=== PATIENT | male | born 1955 ===

== ENCOUNTER 2023-05-24 06:26 | Day surgery (SDC) | payer OTHER, SELFPAY ==
[2023-05-24 09:46] VITALS: BP 143/86
[2023-05-24 09:47] VITALS: BMI 28.3
[2023-05-24 09:55] VITALS: BMI 28.3
[2023-05-24 12:13] VITALS: BP 95/73
[2023-05-24 12:15] VITALS: BP 114/75
[2023-05-24 12:30] VITALS: BP 141/84
== END 2023-05-24 12:50 | disposition home or self-care (01) ==
LOC: SDS 06:26
PROVIDERS: ATTENDING PHYSICIAN Internal Medicine Gastroenterology
DX: Z12.11 Encounter for screening for malignant neoplasm of colon (principal); D12.2 Benign neoplasm of ascending colon; K64.0 First degree hemorrhoids; K57.50 Diverticulosis of both small and large intestine without perforation or abscess without bleeding; K86.2 Cyst of pancreas; K31.89 Other diseases of stomach and duodenum; K31.4 Gastric diverticulum; K76.89 Other specified diseases of liver; R93.3 Abnormal findings on diagnostic imaging of other parts of digestive tract; Z86.010 Personal history of colon polyps; Z98.0 Intestinal bypass and anastomosis status
CPT/HCPCS: 43237; 45385; 43239; 88305; 88342

== ENCOUNTER → 2024-02-28 08:40 | Outpatient (REF) | payer BC, SELFPAY ==
[2024-02-28 10:17] LABS: % Basophils 0.8 % (0-2); % Eosinophils 3.7 % (0-6); % Immature Granulocytes 0.5 % (0-0.5); % Lymphocytes 22.9 % (20.5-51.1); % Neutrophils 63.1 % (42.2-75.2); Absolute Basophils 0.1 10^3/uL (0-0.2); Absolute Eosinophils 0.4 10^3/uL (0-0.7); Absolute Immature Granulocytes 0.1 10^3/uL (0-0.05); Absolute Lymphocytes 2.2 10^3/uL (1.2-3.4); Absolute Monocytes 0.9 10^3/uL (0.1-0.6); Hematocrit 42.6 % (39.0-52.0); Hemoglobin 14.3 g/dL (13.0-18.0); Mean Corp Hgb Conc. 33.6 g/dL (33.0-37.0); Mean Corpuscular Volume 95.3 fL (80.0-94.0); Mean Platelet Volume 9.9 fL (7.4-10.4); Nucleated Red Blood Cells % 0 % (-); Platelet Count 376 10^3/uL (130-400); Red Blood Cell Count 4.47 10^6/uL (4.70-6.10); Red Cell Dist. Width 13.7 % (11.5-14.5); White Blood Cell Count 9.5 10^3/uL (4.8-10.8)
[2024-02-28 11:09] LABS: Blood Urea Nitrogen 19 mg/dl (9-20); Calcium 9.7 mg/dl (8.4-10.2); Carbon Dioxide 24 mmol/L (22-30); Chloride 109 mmol/L (98-107); Glucose 89 mg/dl (70-99); Potassium 4.8 mmol/L (3.5-5.1); Sodium 145 mmol/L (135-145); eGFR > 60.00
== END ==
LOC: REG 08:40
PROVIDERS: ATTENDING PHYSICIAN Specialist; FAMILY PHYSICIAN Internal Medicine
DX: Z01.818 Encounter for other preprocedural examination (principal)
CPT/HCPCS: 36415; 80048; 85025; 93005

== ENCOUNTER 2024-03-27 09:15 | Inpatient (IN) | payer BC, SELFPAY ==
[2024-03-27] VITALS (41 sets, daily range): BP systolic 100–170; BP diastolic 54–82; PULSE 86–97; BMI 30.1; BMI 28.0
--- NOTE | 2024-03-27 03:35 | DOWNTIME ---
There was a [employer] Client Product Strategy Director Downtime on 03/27/2024 from 0200 to 03/27/2024 at 0325 . Downtime documentation of patient's care, including medication administrations, has been reconciled in the electronic record per guidelines. Refer to the
patient's paper chart under the miscellaneous tab to see printed paper medication records and downtime forms.
--- NOTE | 2024-03-27 05:07 | ED.GENMED ---
History of Present Illness
<AYAAN Villalobos - Last Filed: 03/27/24 05:15>
General
Chief Complaint: Breathing Problem
Source: patient and spouse
Time Seen by Provider: 03/27/24 04:47
Nursing documentation reviewed up to this point in time: agreed with
History of Present Illness
History of Present Illness:
Pt is a 68 yo M who presents to the ED with his for shortness of breath after having R rotator cuff surgery repair last night. Patient's states when she took the patient home they checked his vitals and he had low blood pressure,
tachycardia, and low O2 saturation. Pt states going up the stairs after surgery he was short of breath. said when the patient's O2 at home read 79% they decided to come to the ED. Pt is saturating in the 90s while on exam. Pt also admits to b/l
upper extremity swelling that began after the surgery. Pt denies headache, chest pain, fever, chills, cough, nasal congestion, palpitations, dizziness, lightheaded, changes in vision, numbness or tingling.
Pt states that last week when at the store he felt dizzy, so he sat down and then fainted. EMS was called to the store to help the patient. Pt states that he hit the right side of his face from the fall. Pt states that after the fall he had no
headache.
Review of Systems
<AYAAN Villalobos - Last Filed: 03/27/24 05:15>
Review of Systems
Allergies reviewed?: Yes
Constitutional: Reports no symptoms
EENT: Reports no symptoms
Respiratory: Reports other (shortness of breath)
Cardiac: Reports no symptoms
ABD/GI: Reports no symptoms
: Reports no symptoms
Phy Exam
<AYAAN Villalobos - Last Filed: 03/27/24 05:15>
General Physical Exam
General Presentation: well appearing and no apparent distress
General age: appears stated age
General Skin: warm
General Habitus: normal
General Mental: alert
General Hydration: appears well hydrated
Cardiovascular Exam
Cardiovascular Exam: regular rate/rhythm
Pulmonary Exam
Pulmonary Exam: lungs clear
Scores
<Zunilda Purdy DO - Last Filed: 03/27/24 07:16>
Heart Failure Risk
Heart Failure Risk Score: Not Applicable
Course
<Erika Joyner, STPA - Last Filed: 03/27/24 05:15>
Orders/Labs/Results
Orders:
Orders
03/27/24 05:18
Electrocardiogram (*1) Urgent
Reason for Study: Shortness of Breath
EKG- Treatment ONCE
Orthostatic VS- Treatment ONCE
CR Chest - 2 Views Urgent
Comment:
Reason For Exam: HUMPHREY
03/27/24 05:27
Type+Screen Urgent
Complete Blood Count/With Diff Urgent
Comprehensive Metabolic Panel Urgent
Free T4 Urgent
NT-proBNP Urgent
TSH Reflex To Free T4 Urgent
Troponin I Urgent
03/27/24 05:58
ABO2 Urgent
BBK Wristband Number:
Associate notified that ABO2 has been ordered: [id number]
Date: 03/27/24
Time: 05:55
Associate Professor Of Chemistry ID: [id number]
03/27/24 06:25
Pantoprazole 80 mg/100 ml Nss [Protonix] 80 mg in 100 ml IV NOW
Pantoprazole [Protonix IV] 80 mg IV NOW STA
Abnormal Lab Results
03/27/24
05:27
WBC 18.6 H 10^3/uL
(4.8-10.8)
RBC 1.58 L 10^6/uL
(4.70-6.10)
Hgb 5.1 L* g/dL
(13.0-18.0)
Hct 15.4 L* %
(39.0-52.0)
MCV 97.5 H fL
(80.0-94.0)
MCH 32.3 H pg
(27.0-31.0)
Abs Immat Gran (auto) 0.1 H 10^3/uL
(0-0.05)
Absolute Neuts (auto) 15.0 H 10^3/uL
(1.4-6.5)
Absolute Monos (auto) 1.2 H 10^3/uL
(0.1-0.6)
Immature Gran % 0.6 H %
(0-0.5)
Neutrophils % 80.3 H %
(42.2-75.2)
Lymphocytes % 12.2 L %
(20.5-51.1)
Chloride 110 H mmol/L
(98-107)
Glucose 112 H mg/dl
(70-99)
Calcium 8.2 L mg/dl
(8.4-10.2)
Total Bilirubin < 0.1 L mg/dl
(0.2-1.3)
Alkaline Phosphatase 32 L U/L
(38-126)
Total Protein 5.0 L g/dl
(6.3-8.2)
Albumin 3.0 L g/dl
(3.5-5.0)
TSH (Reflex) 0.35 L uIU/ml
(0.47-4.68)
03/27/24 05:27
03/27/24 05:27
Vital Signs
Initial and Last Documented VS:
Initial Vital Signs
Temp Pulse Resp BP Pulse Ox
98.3 F 88 16 112/57 100
03/27/24 00:40 03/27/24 00:40 03/27/24 00:40 03/27/24 00:40 03/27/24 00:40
Last Documented Vital Signs
Temp Pulse Resp BP Pulse Ox
98.3 F 100 22 100/62 90
03/27/24 00:40 03/27/24 06:45 03/27/24 06:45 03/27/24 06:45 03/27/24 06:45
<Zunilda Purdy DO - Last Filed: 03/27/24 07:16>
Orders/Labs/Results
Orders:
Orders
03/27/24 05:18
Electrocardiogram (*1) Urgent
Reason for Study: Shortness of Breath
EKG- Treatment ONCE
Orthostatic VS- Treatment ONCE
CR Chest - 2 Views Urgent
Comment:
Reason For Exam: HUMPHREY
03/27/24 05:27
Type+Screen Urgent
Complete Blood Count/With Diff Urgent
Comprehensive Metabolic Panel Urgent
Free T4 Urgent
NT-proBNP Urgent
TSH Reflex To Free T4 Urgent
Troponin I Urgent
03/27/24 05:58
ABO2 Urgent
BBK Wristband Number:
Associate notified that ABO2 has been ordered: [id number]
Date: 03/27/24
Time: 05:55
Associate Professor Of Chemistry ID: [id number]
03/27/24 06:25
Pantoprazole 80 mg/100 ml Nss [Protonix] 80 mg in 100 ml IV NOW
Pantoprazole [Protonix IV] 80 mg IV NOW STA
Abnormal Lab Results
03/27/24
05:27
WBC 18.6 H 10^3/uL
(4.8-10.8)
RBC 1.58 L 10^6/uL
(4.70-6.10)
Hgb 5.1 L* g/dL
(13.0-18.0)
Hct 15.4 L* %
(39.0-52.0)
MCV 97.5 H fL
(80.0-94.0)
MCH 32.3 H pg
(27.0-31.0)
Abs Immat Gran (auto) 0.1 H 10^3/uL
(0-0.05)
Absolute Neuts (auto) 15.0 H 10^3/uL
(1.4-6.5)
Absolute Monos (auto) 1.2 H 10^3/uL
(0.1-0.6)
Immature Gran % 0.6 H %
(0-0.5)
Neutrophils % 80.3 H %
(42.2-75.2)
Lymphocytes % 12.2 L %
(20.5-51.1)
Chloride 110 H mmol/L
(98-107)
Glucose 112 H mg/dl
(70-99)
Calcium 8.2 L mg/dl
(8.4-10.2)
Total Bilirubin < 0.1 L mg/dl
(0.2-1.3)
Alkaline Phosphatase 32 L U/L
(38-126)
Total Protein 5.0 L g/dl
(6.3-8.2)
Albumin 3.0 L g/dl
(3.5-5.0)
TSH (Reflex) 0.35 L uIU/ml
(0.47-4.68)
03/27/24 05:27
03/27/24 05:27
Vital Signs
Initial and Last Documented VS:
Initial Vital Signs
Temp Pulse Resp BP Pulse Ox
98.3 F 88 16 112/57 100
03/27/24 00:40 03/27/24 00:40 03/27/24 00:40 03/27/24 00:40 03/27/24 00:40
Last Documented Vital Signs
Temp Pulse Resp BP Pulse Ox
98.3 F 100 22 100/62 90
03/27/24 00:40 03/27/24 06:45 03/27/24 06:45 03/27/24 06:45 03/27/24 06:45
<AYAAN Villalobos - Last Filed: 03/27/24 05:15>
*Critical Care Note
Total Time (30-74mins, 75-104mins- exclusive of procedures): Not Applicable
<Zunilda Purdy DO - Last Filed: 03/27/24 07:16>
*Radiology
Radiology exam reviewed: preliminary read by ED provider (Chest x-ray shows mild cardiomegaly, poor inspiratory effort otherwise unremarkable.)
*Pulse Oximetry
Patient hypoxic: no
*EKG
Interpreted by ED Provider?: Yes
Interpretation: normal
Comparison EKG: no changes (Unchanged from previous February 27 save for heart rate has increased from 73 to now 87)
Rate: normal
Rhythm: sinus and PVC's
Howe: normal axis
Interval: first degree heart block
QRS Pattern: normal QRS
Ischemia: no ischemia
*Practicing Md Anesthesiologist Interpretation
Rate: normal
Interpretation: normal
Rhythm: sinus
ED Attending Note
<AYAAN Villalobos - Last Filed: 03/27/24 05:15>
-
Portions of this chart may have been created with voice recognition software.� Occasional wrong word or��sound alike� substitutions may have occurred due to the inherent limitations of voice recognition software.
<Zunilda Purdy DO - Last Filed: 03/27/24 07:16>
ED Attending Note
Patient seen and examined by attending physician: Yes
I performed the substantive portion of visit, reviewed & personally made and approve the management plan that is documented in note by myself or CRISTOBAL.: Yes
ED Attending Note:
This is a 68-year-old gentleman who has remote history of traumatic left BKA, splenectomy, history of perforated colon related to diverticulitis requiring colon resection and prior history of AAA repair. More recently he has been suffering with
bilateral rotator cuff injuries taking a fair amount of ibuprofen over the past several months. He underwent right rotator cuff repair yesterday.
Unremarkable preop labs and EKG 1 month ago.
1 week ago he suffered a syncopal episode while at a store he became lightheaded, passed out, struck his head and upon EMS arrival was found to be hypotensive. He declined transport at that time but since then he has had dyspnea on exertion,
intermittent lightheadedness and feeling of palpitations that his heart rate has been running in the 80s to 90s when he generally is in the 60s. He does admit to some black tarry stools sporadically over the past week. He denies abdominal pain, no
nausea nor vomiting, no chest pain. No fever no chills.
Since postop yesterday afternoon he has remained somewhat tachycardic, short of breath and markedly short of breath with attempting to ascend the stairs tonight. He denies shoulder pain stating his right shoulder is still numb from local anesthesia
block.
He underwent surveillance colonoscopy and endoscopy May of this year. Endoscopy showed mild antral gastritis otherwise unremarkable. Colonoscopy showed 1 small polyp, internal hemorrhoids. Unremarkable colonic anastomosis.
He takes no anticoagulants save for low-dose aspirin.
GENERAL: 68-year-old gentleman appears his stated age, awake and alert, pleasant, appears in no acute distress. is accompanying.
EYE: pupils equal and reactive. Moderately pale conjunctiva bilaterally. Anicteric.
NECK: Supple, nontender, no meningismus, no significant adenopathy.
ENT: oral mucosa is moist. No rhinorrhea.
CARDIAC: Regular rate and rhythm. no murmur.
LUNGS: Clear breath sounds bilaterally, no acute respiratory distress, no wheezes/rales/rhonchi
ABDOMEN: Soft, nondistended, without focal tenderness, no r/g, no cvat. normoactive BS. Rectal exam by PA student under my direct supervision. Scant black stool that is heme positive.
NEUROLOGICAL: Alert and oriented x3, no focal neuro deficits.
SKIN: Warm and dry, moderately pale in color most noted with moderate pallor to bilateral palms and conjunctiva, skin intact. No rash. Scattered vitiligo dorsal digits, anterior abdominal incision and few small patches of vitiligo to upper chest.
MUSCULOSKELETAL: No clubbing or cyanosis. Trace nonpitting edema bilateral hands. Right shoulder surgical dressing is dry and intact. Right upper extremity held in 30 degree abduction with abduction pillow. Peripheral pulses are full and equal
b/l. No palpable tenderness.
PSYCH: Normal and appropriate interaction.
Significant concern for anemia, symptomatic anemia, other consideration is CHF, arrhythmia, thyroid disorder, electrolyte abnormality.
Will check labs, EKG, chest x-ray.
06:30
Labs are significant for significant anemia with hemoglobin of 5.1. This is dropped from 14 less than 1 month ago.
Troponin and BNP are pending.
Chest x-ray shows mild cardiomegaly but is a poor inspiratory effort, AP film.
I suspect upper GI bleed related to NSAID use with heme positive stools. Will initiate Protonix bolus and drip.
Patient has been typed and crossed for 2 units of packed red blood cells.
Will admit to hospitalist service.
Discharge Plan
Departure
Patient Disposition: Admit
Date of Disposition: 03/27/24
Time of Disposition: 06:19
Admit to: Telemetry
Admit to doctor: sydney
Presentation/result/management discussed w/ accepting MD/DO: Hospitalist
Condition: Serious
Discharge Problem:
severe, symptomatic anemia, Occult GI bleeding
Prescriptions:
No Action
multivitamin Tablet
1 tab PO DAILY
fexofenadine [Vianey] 60 mg Tablet
120 mg PO DAILY PRN (Reason: allergy)
aspirin 81 mg Capsule
81 mg PO DAILY
Referrals:
Chris Park MD [Family Provider] -
Interventions
Interventions:
*Risk Screen - Suicide Last Done: 03/27/24 00:40
*General Assessment Last Done: 03/27/24 04:50
*Neglect/Abuse Screening Last Done: 03/27/24 00:40
*ED COVID-19 Vaccine History Last Done: 03/27/24 04:50
ED- Cardiac Assessment Last Done: 03/27/24 04:50
ED- Pulmonary Assessment Last Done: 03/27/24 04:50
Discharge Date and Time
Print Language: MALTESE
[2024-03-27 05:57] LABS: % Basophils 0.2 % (0-2); % Eosinophils 0.1 % (0-6); % Immature Granulocytes 0.6 % (0-0.5); % Lymphocytes 12.2 % (20.5-51.1); % Monocytes 6.6 % (1.7-9.3); % Neutrophils 80.3 % (42.2-75.2); Absolute Immature Granulocytes 0.1 10^3/uL (0-0.05); Absolute Lymphocytes 2.3 10^3/uL (1.2-3.4); Absolute Monocytes 1.2 10^3/uL (0.1-0.6); Hematocrit 15.4 % (39.0-52.0); Hemoglobin 5.1 g/dL (13.0-18.0); Mean Corp Hgb Conc. 33.1 g/dL (33.0-37.0); Mean Corpuscular Hgb 32.3 pg (27.0-31.0); Mean Corpuscular Volume 97.5 fL (80.0-94.0); Mean Platelet Volume 9.5 fL (7.4-10.4); Nucleated Red Blood Cells % 0.4 % (-); Platelet Count 354 10^3/uL (130-400); Red Blood Cell Count 1.58 10^6/uL (4.70-6.10); Red Cell Dist. Width 13.8 % (11.5-14.5); White Blood Cell Count 18.6 10^3/uL (4.8-10.8)
[2024-03-27 06:03] LABS: ALT (SGPT) 35 U/L (0-50); AST (SGOT) 31 U/L (17-59); Alkaline Phosphatase 32 U/L (38-126); Blood Urea Nitrogen 16 mg/dl (9-20); Calcium 8.2 mg/dl (8.4-10.2); Carbon Dioxide 22 mmol/L (22-30); Chloride 110 mmol/L (98-107); Estimated Creatinine Clearance 104 ml/min; Glucose 112 mg/dl (70-99); Potassium 3.9 mmol/L (3.5-5.1); Sodium 139 mmol/L (135-145); Total Bilirubin < 0.1 mg/dl (0.2-1.3); eGFR > 60.00
[2024-03-27 06:33] LABS: TSH Reflex To Free T4 0.35 uIU/ml (0.47-4.68)
[2024-03-27] MEDS: PROTONIX 100 IV (06:37)
[2024-03-27] MEDS: PROTONIX IV 80 MG IV (06:37)
[2024-03-27 06:58] LABS: NT-proBNP 287 pg/ml; Troponin I < 0.012 ng/ml
[2024-03-27 07:02] LABS: Free T4 1.33 ng/dl (0.78-2.19)
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
--- NOTE | 2024-03-27 09:13 | EDRN ---
Patient receiving 1st unit PRBC. Explained to patient signs and symptoms of a transfusion reaction. Verbalized understanding.
--- NOTE | 2024-03-27 09:30 | EDRN ---
Patient tolerating PRBC. Asymptomatic of a transfusion reaction.
[2024-03-27 10:25] LABS: Iron 20 ug/dl (49-181)
[2024-03-27 10:31] LABS: Percent Saturation 4 % (20-50); Total Iron Binding Capacity 414 ug/dl (261-462)
[2024-03-27] MEDS: MORPHINE SULFATE 1 MG IV ×2 (12:55→20:35)
[2024-03-27] MEDS: ASPIR LOW (ENTERIC COATED) 81 MG PO (12:55)
[2024-03-27 13:14] LABS: Ferritin 7.7 ng/ml (17.9-464.0)
[2024-03-27 13:45] LABS: Folate > 20.0 ng/ml (2.76-20); Vitamin B12 316 pg/ml (239-931)
[2024-03-27] MEDS: MORPHINE SULFATE 4 MG IV (16:39)
[2024-03-27] MEDS: PROTONIX IV 40 MG IV (19:17)
[2024-03-27] MEDS: NSS (PRESERVATIVE FREE) 10 ML IV (19:17)
[2024-03-27 19:56] LABS: Hematocrit 28.3 % (39.0-52.0); Hemoglobin 9.3 g/dL (13.0-18.0)
[2024-03-28] VITALS (8 sets, daily range): BP systolic 113–158; BP diastolic 55–76; PULSE 77–94; O2SAT 96–100
[2024-03-28] MEDS: MORPHINE SULFATE 1 MG IV ×5 (02:09→20:14)
[2024-03-28] MEDS: TYLENOL 650 MG PO (05:07)
--- NOTE | 2024-03-28 06:03 | W.PN.GI.CBS2 ---
Today's Communication / Plan
-
S/p EGD on 03/27 with multiple, well-healed PUD 2/2 NSAIDs. No signs to suggest rebleeding. PPI 40 mg BiD for 8 weeks along with repeat EGD in 2 months. Sent message to office staff this AM to further help coordination of care. Rest as outlined
below. GI team will sign-off, please call back with any questions or concerns.
Assessment / Plan
-
#Symptomatic Anemia
#Melena 2/2
#Gastric and Duodenal Ulcers (PUD)
This is a 68-year-old male with past medical history of IPMN status post EUS with Dr. Lr in May, colon polyps last colonoscopy was also in May with Dr. Lr, bowel resection for perforated diverticulitis and multiple other surgeries as
listed below who had right shoulder surgery for rotator cuff repair yesterday presented to the emergency room with symptoms dyspnea on exertion and hypotension and low oxygen saturation levels and his hemoglobin was noted to be 5.1 and normal BUN
and his hemoglobin on 02/28/2024 was 14.3. He says that about a week ago when he was at [facility] he had a syncopal episode and since last week he has been having melena unfortunately had not reported this to any of his physicians. He denies
any abdominal pain currently no nausea vomiting or hematemesis he has been feeling weakness with dizziness for the past 1 week. He has been taking ibuprofen almost on a daily basis for the past 2 to 3 weeks he was on vacation in [place] recently and
was taking ibuprofen daily for shoulder pain.
Impression: Significant symptomatic acute blood loss anemia with history of melena for the past 1 week with dizziness and 1 syncopal episode about a week ago with a hemoglobin of 5. He is scheduled to receive 3 units of packed red blood cells most
likely related to PUD from recent excessive NSAID use. He was also taking aspirin.
S/p EGD 03/27/24: Multiple well-healed gastric and duodenal ulcers, non-obstructing Schatzki's ring, small HH, and duodenal diverticulum otherwise normal. No further episodes of melena or bloody stools and H/h remains stable after 3 uPRBCs with Hgb
9.3 -> 8.7 without other signs to suggest recurrent bleeding.
Recommendations:
- Tolerating CLD, may advanced diet to low-fat as tolerated
- Repeat H/h stable, trend CBC q daily while inpatient
- IV PPI 40 mg BiD and transition to oral Pantoprazole 40 mg BiD for 8 weeks, then once daily
- Will need a repeat EGD in about 8 weeks to ensure ulcer healing given gastric ulcers. Have sent message to office staff this morning as patient f/w Dr. Lr to further help coordination of care and timing of repeat EGD
- Strict avoidance of all NSAIDs given likely NSAID-induced PUD
- May continue daily ASA from GI standpoint
- Pancreatic cyst likely IPMN s/p EUS in May and is scheduled for an MRI in May [address] Lr
- Rest of care per primary team
Discussed with internal medicine team this AM. GI team will sign-off. Please call back with any questions or concerns.
Subjective
Subjective
Date of Service: March 28, 2024
- S/p EGD 03/27/24: Multiple well-healed gastric and duodenal ulcers, non-obstructing Schatzki's ring, small HH, and duodenal diverticulum otherwise normal
- Hgb 5.1 (s/p 3 uPRBCs) -> 9.3 yesterday evening on 03/27/24
- Otherwise, no acute events overnight
Repeat CBC with stable Hgb with Hgb 8.7.
Feeling well this morning without any abdominal pain, nausea or vomiting. Denies any further black and/or bloody stools. Denies any recent BM yesterday evening or early this AM. Tolerating CLD without difficulty, hoping to have more solid food this
AM.
Objective
Data Reviewed
Laboratory Data:
Laboratory Results
Total Bilirubin < 0.1 mg/dl (0.2-1.3) L 03/27/24 05:27
AST 31 U/L (17-59) 03/27/24 05:27
ALT 35 U/L (0-50) 03/27/24 05:27
Alkaline Phosphatase 32 U/L (38-126) L 03/27/24 05:27
Vital Signs and I&O:
Vital Signs
Temp Pulse Resp BP Pulse Ox
97.7 F 94 16 141/61 97
03/28/24 03:28 03/27/24 19:20 03/28/24 03:28 03/27/24 19:20 03/28/24 03:28
I&O
03/26/24 03/27/24 03/28/24
06:59 06:59 06:59
Intake Total 490 / 490
Output Total 400 / 400
Balance 90 / 90
Physical Exam
Physical Exam
HEENT: Anicteric and Moist mucous membranes
Cardiology: Normal Sinus Rhythm
Pulmonary: Other (Normal WOB without respiratory distress)
GI: Soft, Non Distended and Non Tender
Neuro: Non Focal
[2024-03-28 07:14] LABS: Hematocrit 26.5 % (39.0-52.0); Hemoglobin 8.7 g/dL (13.0-18.0); Mean Corp Hgb Conc. 32.8 g/dL (33.0-37.0); Mean Corpuscular Hgb 30.5 pg (27.0-31.0); Mean Platelet Volume 9.1 fL (7.4-10.4); Platelet Count 315 10^3/uL (130-400); Red Blood Cell Count 2.85 10^6/uL (4.70-6.10); Red Cell Dist. Width 15.8 % (11.5-14.5); White Blood Cell Count 13.6 10^3/uL (4.8-10.8)
[2024-03-28 07:33] LABS: Blood Urea Nitrogen 13 mg/dl (9-20); Calcium 8.2 mg/dl (8.4-10.2); Carbon Dioxide 24 mmol/L (22-30); Chloride 105 mmol/L (98-107); Estimated Creatinine Clearance 93 ml/min; Glucose 107 mg/dl (70-99); Potassium 3.8 mmol/L (3.5-5.1); Sodium 135 mmol/L (135-145); eGFR > 60.00
[2024-03-28] MEDS: NSS (PRESERVATIVE FREE) 10 ML IV ×2 (07:56→19:50)
[2024-03-28] MEDS: PROTONIX IV 40 MG IV ×2 (07:56→19:50)
[2024-03-28] MEDS: ASPIR LOW (ENTERIC COATED) 81 MG PO (07:56)
[2024-03-28] MEDS: FLUSH (NSS) 2 FLUSH IV ×2 (07:58→10:36)
[2024-03-28 08:21] LABS: Hepatitis C Antibody Negative (Negative)
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
[2024-03-28] MEDS: VITAMIN B-12 1000 MCG PO (10:38)
[2024-03-28] MEDS: FERRLECIT 110 MG IV (10:40)
--- NOTE | 2024-03-28 10:41 | PTOTSP ---
pt currently demonstrates ability to complete simple ADLs, functional transfers, ambulation with supervision to minimal assistance. pt requires assistance due to right rotator cuff repair to adjust sling and don prosthetic. pt reports spouse will
assist. no acute OT needs identified at this time, will sign off.
--- NOTE | 2024-03-28 15:47 | CM ---
Met with patient and his who was at bedside to obtain information for assessment. Patient stated that he lives with his in a three story home with three steps to enter. Patient was independent prior to admission and recent sx. He is able
to complete ADLs, personal care, dressing, and bathing. 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 He denied use of DME but does have access to a commode, w/c, cane, walker and crutches. He is able to drive and can get himself to his
appointments and do his own laundry.
Patient has a prescription plan and uses, [facility].
Patient's PCP, is Chris [facility].
Patient wants to return home when discharged. Will need to watch for o2 needs.
Plan: Case management will continue to follow and assist with discharge planning. Home, possible o2 names.
[2024-03-29] MEDS: MORPHINE SULFATE 1 MG IV ×3 (00:16→08:54)
[2024-03-29 06:44] LABS: Hematocrit 28.6 % (39.0-52.0); Hemoglobin 9.2 g/dL (13.0-18.0); Mean Corp Hgb Conc. 32.2 g/dL (33.0-37.0); Mean Corpuscular Hgb 30.7 pg (27.0-31.0); Mean Corpuscular Volume 95.3 fL (80.0-94.0); Mean Platelet Volume 8.8 fL (7.4-10.4); Platelet Count 359 10^3/uL (130-400); Red Cell Dist. Width 14.9 % (11.5-14.5); White Blood Cell Count 14.2 10^3/uL (4.8-10.8)
[2024-03-29 07:28] LABS: Blood Urea Nitrogen 12 mg/dl (9-20); Calcium 8.3 mg/dl (8.4-10.2); Carbon Dioxide 26 mmol/L (22-30); Chloride 102 mmol/L (98-107); Estimated Creatinine Clearance 93 ml/min; Glucose 107 mg/dl (70-99); Potassium 3.6 mmol/L (3.5-5.1); Sodium 136 mmol/L (135-145); eGFR > 60.00
[2024-03-29] MEDS: VITAMIN B-12 1000 MCG PO (07:43)
[2024-03-29] MEDS: ASPIR LOW (ENTERIC COATED) 81 MG PO (07:43)
[2024-03-29] MEDS: PROTONIX IV 40 MG IV (07:43)
[2024-03-29] MEDS: NSS (PRESERVATIVE FREE) 10 ML IV (07:44)
[2024-03-29 08:00] VITALS: BP 116/56
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
--- NOTE | 2024-03-29 11:47 | CM ---
CM met with pt and spouse at bedside.
No home oxygen needs at this time.
Spouse to transport home.
Discharge dispo is home no needs.
[2024-03-29 12:25] VITALS: BP 110/63
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
== END 2024-03-29 12:33 | disposition home or self-care (01) | DRG 378 ==
LOC: 3 WEST ACU 09:15
PROVIDERS: Nurse Practitioner Adult Health; ADMITTING PHYSICIAN Internal Medicine; CONSULT PHYSICIAN Internal Medicine Gastroenterology; EMERGENCY PHYSICIAN Emergency Medicine; FAMILY PHYSICIAN Internal Medicine
PROC: 0DJ08ZZ Inspection of Upper Intestinal Tract, Via Natural or Artificial Opening Endoscopic (ICD-10-PCS; 2024-03-27)
PROC: 30233N1 Transfusion of Nonautologous Red Blood Cells into Peripheral Vein, Percutaneous Approach (ICD-10-PCS; 2024-03-27)
DX: K26.4 Chronic or unspecified duodenal ulcer with hemorrhage (principal); D62 Acute posthemorrhagic anemia; K86.2 Cyst of pancreas; R06.02 Shortness of breath; M79.89 Other specified soft tissue disorders; R42 Dizziness and giddiness; I44.0 Atrioventricular block, first degree; D50.9 Iron deficiency anemia, unspecified; R09.02 Hypoxemia; R06.89 Other abnormalities of breathing; I71.40 Abdominal aortic aneurysm, without rupture, unspecified; K57.10 Diverticulosis of small intestine without perforation or abscess without bleeding; K76.89 Other specified diseases of liver; K64.8 Other hemorrhoids; E78.00 Pure hypercholesterolemia, unspecified; K25.4 Chronic or unspecified gastric ulcer with hemorrhage; K22.2 Esophageal obstruction; K44.9 Diaphragmatic hernia without obstruction or gangrene; T39.315A Adverse effect of propionic acid derivatives, initial encounter; Y92.9 Unspecified place or not applicable; Z86.79 Personal history of other diseases of the circulatory system; Z89.512 Acquired absence of left leg below knee; Z90.81 Acquired absence of spleen; Z79.82 Long term (current) use of aspirin; Z79.1 Long term (current) use of non-steroidal anti-inflammatories (NSAID); Z86.0100 Personal history of colon polyps, unspecified; Z88.5 Allergy status to narcotic agent
CPT/HCPCS: 71046; 80048; 80053; 82607; 82728; 82746; 83540; 83550; 83880; 84439; 84443; 84484; 85014; 85018; 85025; 85027; 86803; 86850; 86900; 86901; 86920; 93005; 96374; 97116; 97162; 97166; 99285; J2916; P9016

== ENCOUNTER → 2024-04-10 12:56 | Outpatient (REF) | payer BC, SELFPAY ==
[2024-04-10 14:03] LABS: % Basophils 1.1 % (0-2); % Eosinophils 4.9 % (0-6); % Lymphocytes 28.9 % (20.5-51.1); % Monocytes 8.6 % (1.7-9.3); % Neutrophils 55.5 % (42.2-75.2); Absolute Basophils 0.1 10^3/uL (0-0.2); Absolute Eosinophils 0.4 10^3/uL (0-0.7); Absolute Immature Granulocytes 0.1 10^3/uL (0-0.05); Absolute Lymphocytes 2.4 10^3/uL (1.2-3.4); Absolute Monocytes 0.7 10^3/uL (0.1-0.6); Absolute Neutrophils 4.5 10^3/uL (1.4-6.5); Hematocrit 32.2 % (39.0-52.0); Hemoglobin 10.3 g/dL (13.0-18.0); Mean Corpuscular Hgb 29.4 pg (27.0-31.0); Mean Platelet Volume 8.9 fL (7.4-10.4); Nucleated Red Blood Cells % 0 % (-); Platelet Count 718 10^3/uL (130-400); Red Cell Dist. Width 14.2 % (11.5-14.5); White Blood Cell Count 8.1 10^3/uL (4.8-10.8)
[2024-04-10 14:04] LABS: ALT (SGPT) 69 U/L (0-50); AST (SGOT) 46 U/L (17-59); Alkaline Phosphatase 49 U/L (38-126); Blood Urea Nitrogen 16 mg/dl (9-20); Calcium 9.5 mg/dl (8.4-10.2); Carbon Dioxide 25 mmol/L (22-30); Chloride 103 mmol/L (98-107); Glucose 93 mg/dl (70-99); Potassium 4.7 mmol/L (3.5-5.1); Sodium 137 mmol/L (135-145); Total Bilirubin 0.2 mg/dl (0.2-1.3); Total Protein 6.6 g/dl (6.3-8.2); eGFR > 60.00
[2024-04-10 14:34] LABS: Glycohemoglobin (HgbA1c) 5.2 % (4.0-5.6)
[2024-04-12 15:11] LABS: Intrinsic Factor Blocking Ab Negative (Negative)
== END ==
LOC: REG 12:56
PROVIDERS: ATTENDING PHYSICIAN Internal Medicine
DX: K92.2 Gastrointestinal hemorrhage, unspecified (principal); K25.3 Acute gastric ulcer without hemorrhage or perforation; D50.0 Iron deficiency anemia secondary to blood loss (chronic); E53.8 Deficiency of other specified B group vitamins; R73.01 Impaired fasting glucose; Z09 Encounter for follow-up examination after completed treatment for conditions other than malignant neoplasm
CPT/HCPCS: 36415; 80053; 83036; 85025; 86340

== ENCOUNTER → 2024-05-13 08:06 | Outpatient (REF) | payer BC, SELFPAY ==
[2024-05-13 09:23] LABS: % Basophils 0.4 % (0-2); % Eosinophils 0.4 % (0-6); % Immature Granulocytes 0.3 % (0-0.5); % Lymphocytes 18.1 % (20.5-51.1); % Monocytes 7.9 % (1.7-9.3); % Neutrophils 72.9 % (42.2-75.2); Absolute Monocytes 0.9 10^3/uL (0.1-0.6); Absolute Neutrophils 8.2 10^3/uL (1.4-6.5); Hematocrit 39.9 % (39.0-52.0); Hemoglobin 12.5 g/dL (13.0-18.0); Mean Corp Hgb Conc. 31.3 g/dL (33.0-37.0); Mean Corpuscular Hgb 28.9 pg (27.0-31.0); Mean Corpuscular Volume 92.1 fL (80.0-94.0); Mean Platelet Volume 9.5 fL (7.4-10.4); Nucleated Red Blood Cells % 0 % (-); Platelet Count 424 10^3/uL (130-400); Red Blood Cell Count 4.33 10^6/uL (4.70-6.10); Red Cell Dist. Width 15.5 % (11.5-14.5); White Blood Cell Count 11.2 10^3/uL (4.8-10.8)
[2024-05-13 09:50] LABS: AST (SGOT) 30 U/L (17-59); HDL Cholesterol 64 mg/dl; LDL Cholesterol, Calculated 105 mg/dl; Total Cholesterol 180 mg/dl (50-199); Triglyceride 58 mg/dl (10-149); Very Low Density Lipoprotein 11 mg/dl (0-30)
[2024-05-13 10:46] LABS: Vitamin B12 900 pg/ml (239-931)
== END ==
LOC: REG 08:06
PROVIDERS: ATTENDING PHYSICIAN Internal Medicine
DX: E53.8 Deficiency of other specified B group vitamins (principal); K92.2 Gastrointestinal hemorrhage, unspecified; R74.8 Abnormal levels of other serum enzymes
CPT/HCPCS: 36415; 80061; 82607; 84450; 85025

== ENCOUNTER 2024-06-11 06:46 | Day surgery (SDC) | payer BC, SELFPAY ==
[2024-06-11 07:51] VITALS: BMI 29.5
[2024-06-11 08:00] VITALS: BP 137/82; BMI 29.5
[2024-06-11 10:20] VITALS: BP 118/75
[2024-06-11 10:30] VITALS: BP 102/84
[2024-06-11 10:45] VITALS: BP 130/82
== END 2024-06-11 11:03 | disposition home or self-care (01) ==
LOC: SDS 06:46
PROVIDERS: ATTENDING PHYSICIAN Internal Medicine Gastroenterology
DX: K22.2 Esophageal obstruction (principal); K83.8 Other specified diseases of biliary tract; K76.89 Other specified diseases of liver; K44.9 Diaphragmatic hernia without obstruction or gangrene; R93.3 Abnormal findings on diagnostic imaging of other parts of digestive tract
CPT/HCPCS: 43249; 43239; 88305; C1726

== ENCOUNTER → 2024-08-07 14:42 | Outpatient (REF) | payer BC, SELFPAY | LOC: HWRCS 14:42 | PROVIDERS: ATTENDING PHYSICIAN Internal Medicine | DX: R01.1 Cardiac murmur, unspecified (principal) | CPT/HCPCS: 93306 ==

== ENCOUNTER → 2024-08-28 06:45 | Outpatient (REF) | payer BC, SELFPAY ==
[2024-08-28 07:59] LABS: % Basophils 0.9 % (0-2); % Eosinophils 6.3 % (0-6); % Immature Granulocytes 0.3 % (0-0.5); % Lymphocytes 29.3 % (20.5-51.1); % Neutrophils 52.2 % (42.2-75.2); Absolute Basophils 0.1 10^3/uL (0-0.2); Absolute Eosinophils 0.4 10^3/uL (0-0.7); Absolute Monocytes 0.7 10^3/uL (0.1-0.6); Absolute Neutrophils 3.5 10^3/uL (1.4-6.5); Hemoglobin 14.4 g/dL (13.0-18.0); Mean Corp Hgb Conc. 33.5 g/dL (33.0-37.0); Mean Corpuscular Hgb 30.9 pg (27.0-31.0); Mean Corpuscular Volume 92.3 fL (80.0-94.0); Mean Platelet Volume 9.3 fL (7.4-10.4); Nucleated Red Blood Cells % 0 % (-); Platelet Count 323 10^3/uL (130-400); Red Blood Cell Count 4.66 10^6/uL (4.70-6.10); Red Cell Dist. Width 16.2 % (11.5-14.5); White Blood Cell Count 6.7 10^3/uL (4.8-10.8)
[2024-08-28 08:53] LABS: PSA, Total - Screen 1.19 ng/ml (0.0-4.0)
== END ==
LOC: REG 06:45
PROVIDERS: ATTENDING PHYSICIAN Internal Medicine
DX: Z89.512 Acquired absence of left leg below knee (principal); E78.2 Mixed hyperlipidemia; K25.0 Acute gastric ulcer with hemorrhage; D50.0 Iron deficiency anemia secondary to blood loss (chronic); N40.0 Benign prostatic hyperplasia without lower urinary tract symptoms; R01.1 Cardiac murmur, unspecified; K86.2 Cyst of pancreas; Z00.00 Encounter for general adult medical examination without abnormal findings
CPT/HCPCS: 36415; 85025; G0103

== ENCOUNTER → 2025-02-24 07:04 | Outpatient (REF) | payer BC, SELFPAY ==
[2025-02-24 08:19] LABS: Hematocrit 44.4 % (39.0-52.0); Hemoglobin 14.9 g/dL (13.0-18.0); Mean Corp Hgb Conc. 33.6 g/dL (33.0-37.0); Mean Corpuscular Volume 94.9 fL (80.0-94.0); Nucleated Red Blood Cells % 0 % (-); Platelet Count 309 10^3/uL (130-400); Red Cell Dist. Width 13.5 % (11.5-14.5)
[2025-02-24 08:35] LABS: Blood Urea Nitrogen 17 mg/dl (9-20); Calcium 9.2 mg/dl (8.4-10.2); Carbon Dioxide 25 mmol/L (22-30); Chloride 107 mmol/L (98-107); Glucose 114 mg/dl (70-99); Potassium 4.3 mmol/L (3.5-5.1); Sodium 139 mmol/L (135-145); eGFR > 60.00
== END ==
LOC: RCS 07:04
PROVIDERS: ATTENDING PHYSICIAN Specialist; FAMILY PHYSICIAN Internal Medicine
DX: Z01.818 Encounter for other preprocedural examination (principal)
CPT/HCPCS: 36415; 80048; 85025; 93005